=== PATIENT | female | born 1955 | race Caucasian/White ===

== ENCOUNTER 2023-09-17 10:24 | Outpatient (CLI) | payer MEDICARE | END 2023-09-17 10:25 | disposition home or self-care (01) | LOC: CSHULT 10:24 | PROVIDERS: ATTEND Internal Medicine Gastroenterology | DX: R10.13 Epigastric pain (principal); R19.4 Change in bowel habit; K21.9 Gastro-esophageal reflux disease without esophagitis; Z86.010 Personal history of colon polyps; K76.89 Other specified diseases of liver | CPT/HCPCS: 76705 ==